=== PATIENT | female | born 1970 | race Caucasian/White ===

== ENCOUNTER 2016-12-20 15:01 | Emergency (ER) | payer OTHER ==
--- NOTE | 2016-12-20 15:29 | EDPHY ---
H & P Stated Complaint: PELVIC PAIN AND VAGINAL BLEEDING STARTED THIS MORNING 8AM Time Seen by Provider: 12/20/16 15:07 HPI/ROS: CHIEF COMPLAINT: Vaginal bleeding HISTORY OF PRESENT ILLNESS: This is a 46-year-old female SAB 1 with vaginal bleeding that began this morning, approximately 8 hours ago. She has been passing clots. The bleeding is heavier than her usual menstrual periods. She has used four super size pads since the bleeding began, without bleeding through a pad. She feels slightly lightheaded. She denies chest pain or shortness of breath. The bleeding is accompanied by low back pain and crampy lower abdominal pain, slightly worse on the left than on the right. She has not had a Pap smear for over 3 years. She has never had an abnormal Pap smear. She is perimenopausal. She had a time span of approximately 6 months during which she was amenorrheic. She then began [id number] supplements (which she is still taking but is unable to recall all of them) and has now had regular periods for the past 3 months. Her last normal menstrual period was 2 weeks ago. She has had a tubal ligation. She has had 2 sections, no other abdominal surgeries. She reports nausea but no vomiting. She has not had diarrhea. She denies dysuria. She has not been aware of fever. REVIEW OF SYSTEMS: A ten point review of systems was performed and is negative with the exception of the items mentioned in the HPI. Source: Patient, Family Exam Limitations: No limitations - Medical/Surgical History PMH: Past surgical history includes 1. section x2 2. Tubal ligation - Social History Smoking Status: Never smoked Additional Social History: She has 2 children, age 16 and 14. She is accompanied by her who is a local regional marketing manager. 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 - Physical Exam Exam: General Appearance: Alert. Vital signs reviewed. Blood pressure 168/96. Heart rate 59. Eyes: Pupils equal and round, no conjunctival injection, no discharge. Anicteric. Respiratory: Lungs are clear to auscultation; no wheezes, rales, or rhonchi. Cardiovascular: Regular rate and rhythm; no murmur, rub, or gallop. Gastrointestinal: Abdomen is soft and mildly tender in both lower quadrants, no guarding, bowel sounds normal. Pelvic: Bimanual exam shows uterus to be slightly enlarged, no cervical motion tenderness, no ovarian tenderness or enlargement appreciated. Blood and clots in the vaginal vault. Cervical os is closed with bleeding visible from the os. No masses or lesions noted. Skin: Warm and dry, no rashes on exposed skin, normal color. Back: Nontender to palpation over the thoracolumbar spine. No CVAT. Extremities: No lower extremity edema. Neurological: Alert and oriented. Moving all four extremities easily and equally. Psychiatric: Normal affect. Constitutional: Initial Vital Signs Temperature (C) 36.7 C 12/20/16 15:13 Heart Rate 59 L 12/20/16 15:13 Respiratory Rate 18 12/20/16 15:13 Blood Pressure 168/96 H 12/20/16 15:13 O2 Sat (%) 96 12/20/16 15:13 O2 Delivery Mode Room Air Allergies/Adverse Reactions: Sulfa (Sulfonamide Antibiotics) Allergy (Verified 09/20/14 14:12) Home Medications: Medication Instructions Recorded NK [No Known Home Meds] 09/20/14 Medical Decision Making ED Course/Re-evaluation: CBC shows hemoglobin 14.8, hematocrit 42.3. Serum test is negative. Ultrasound ordered. Ultrasound reported to me by Dr. Samuel. It shows endometrial thickening and a dominant right ovarian cyst, no free fluid. No fibroid. Bleeding continues in ED, perhaps slightly lessened. She received one liter NS IV. Pain medication offered, declined. Results of bloodwork and US reviewed with patient and her . I feel that she can safely return home with precautions. She is hemodynamically stable. She will follow up with her Drug Safety Scientist. I do not suspect coagulopathy. This bleeding does not seem consistent with her normal menses in terms of timing and volume. It is possible that the supplements she is taking has resulted in abnormal uterine bleeding; I don't know exactly what supplements she is on so cannot be certain. Her bleeding could be due to an ovulatory disorder or endometrial disorder. No polyp or fibroid seen on US. Malignancy remains in the differential. - Data Points Laboratory Results: Laboratory Results 12/20/16 15:38 Medications Given: Discontinued Medications Sodium Chloride (Ns) 1,000 mls @ 0 mls/hr IV EDNOW ONE; Wide Open PRN Reason: Protocol Stop: 12/20/16 15:58 Last Admin: 08/06/17 17:17 Dose: 1,000 mls Departure - Departure Disposition: Home, Routine, Self-Care Clinical Impression: Dysfunctional uterine bleeding Condition: Good Instructions: Dysfunctional Uterine Bleeding (ED) Additional Instructions: If you have persistent severe abdominal pain, if you have continued heavy bleeding (bleeding through a large pad in an hour and continuing to do so for more than four hours), if you become dizzy or lightheaded/feel short of breath/ experience chest pain--you should return to the emergency department. Please follow up with Dr. Cervantes. Referrals: Sultana Cervantes MD [Medical Doctor] - As per Instructions Ingrid Pretty MD [Medical Doctor] - As per Instructions
[2016-12-20 15:45] LABS: % IMMATURE GRANULYOCYTES 0.3 % (0.0-1.1); ABSOLUTE IMMATURE GRANULOCYTES 0.03 10^3/uL (0.00-0.10); ADD DIFF? NO; ADD MORPH? NO; ADD SCAN? NO; ATYPICAL LYMPHOCYTE FLAG 0 (0-99); FRAGMENT RBC FLAG 0 (0-99); HEMATOCRIT 42.3 % (38.0-47.0); HEMOGLOBIN 14.8 g/dL (12.6-16.3); LEFT SHIFT FLG 0 (0-99); LIPEMIA HEMOLYSIS FLAG 90 (0-99); MEAN CELL HEMOGLOBIN 29.5 pg (27.9-34.1); MEAN CELL VOLUME 84.3 fL (81.5-99.8); MEAN PLATELET VOLUME 9.8 fL (8.7-11.7); PLATELET CLUMPS FLAG 0 (0-99); PLATELET COUNT 262 10^3/uL (150-400); RED BLOOD CELL COUNT 5.02 10^6/uL (4.18-5.33); RED CELL DISTRIBUTION WIDTH 13.2 % (11.5-15.2)
[2016-12-20] MEDS ORDERED: NS 1,000 ML IV ONE (15:57)
[2016-12-20 18:16] VITALS: BP 130/86; PULSE 72; RESP 14; TEMP 98.4; O2SAT 94
== END 2016-12-20 18:15 | disposition home or self-care (01) ==
LOC: CED 15:01
DX: N93.8 Other specified abnormal uterine and vaginal bleeding (principal); E86.9 Volume depletion, unspecified; Z98.51 Tubal ligation status
CPT/HCPCS: 76856-PO; 84703-PO; 85025-PO

== ENCOUNTER 2017-02-20 11:55 | Emergency (ER) | payer OTHER ==
[2017-02-20 12:07] VITALS: TEMP 98
[2017-02-20] MEDS ORDERED: MECLIZINE HCL 25 MG TAB PO ONE (12:43)
--- NOTE | 2017-02-20 12:46 | EDPHY ---
H & P Time Seen by Provider: 02/20/17 12:12 HPI/ROS: Chief complaint. Upper respiratory infection, dizziness HPI. 46-year-old female presents with upper respiratory infection for 1 week. She has congestion and cough. Unsure whether she has had fever but she had chills earlier in the week. She now has dizziness with turning her head for the last 5 days. No change in her hearing or ear pain. Her is a family medicine physician in did the Tiffani maneuver with transient relief. She has had some cough but no shortness of breath. She had vomiting 5 days ago treated with Zofran and that is improved. Still has occasional slight nausea with the dizziness. Sick contacts at work and otherwise no foreign travel. No history of vertigo ROS Constitutional. no fever/chills, no weakness Eyes. no problems with vision ENT. Congestion Cardiovascular. no chest pain Respiratory. Slight cough but no shortness of breath Abdominal. no abdominal pain, no nausea/vomiting, no diarrhea . no problems urinating MS. no calf pain/swelling, no neck/back pain, no joint pain Skin. no rash Lymph. no swollen glands Neuro. Dizziness with head movement Past Medical/Surgical History: Thickened endometrium awaiting biopsy, tubal ligation, Social History: , nonsmoker, no alcohol Smoking Status: Never smoked Physical Exam: General Appearance: Alert well-developed female mild distress vital signs are stable Eyes: Pupils equal and round no pallor or injection. No obvious nystagmus ENT, right tympanic membrane is normal. Left tympanic membrane obscured by cerumen. Pharynx without injection Respiratory: There are no retractions, lungs are clear to auscultation. Cardiovascular: Regular rate and rhythm. Gastrointestinal: Abdomen is soft and nontender, no masses, bowel sounds normal. Neurological: Awake and alert, sensory and motor exams grossly normal. Skin: Warm and dry, no rashes. Musculoskeletal: Neck is supple nontender. Extremities symmetrical, full range of motion. Psychiatric: Patient is oriented X 3, there is no agitation. Constitutional: Initial Vital Signs Temperature (C) 36.6 C 02/20/17 12:04 Heart Rate 66 02/20/17 12:04 Respiratory Rate 18 02/20/17 12:04 Blood Pressure 148/97 H 02/20/17 12:04 O2 Sat (%) 97 02/20/17 12:04 O2 Delivery Mode Room Air Allergies/Adverse Reactions: Sulfa (Sulfonamide Antibiotics) Allergy (Verified 09/20/14 14:12) Home Medications: Medication Instructions Recorded Meclizine HCl 25 mg PO Q6-8PRN PRN #10 tablet 02/20/17 Medical Decision Making Procedures: Meclizine by mouth. Left ear irrigation with cerumen removal. Inspection of the left tympanic membrane following cerumen removal shows no further foreign body and the tympanic membrane is normal ED Course/Re-evaluation: Re-evaluation at 1:25 p.m.. Patient is stable. The patient, her and I discussed treatment plan including criteria for return importance of follow-up and further evaluation. They expressed understanding and agreement Differential Diagnosis: I think that this is peripheral vertigo secondary to upper respiratory infection congestion. No central findings suggestive of CVA. Normal neurologic exam. Her symptoms are worse with head movement. - Data Points Medications Given: Discontinued Medications Carbamide Peroxide (Debrox) 5 drop LEFTEAR EDNOW ONE Stop: 02/20/17 12:50 Last Admin: 02/20/17 12:52 Dose: 5 drops Meclizine HCl (Meclizine Hcl) 25 mg PO EDNOW ONE Stop: 02/20/17 12:44 Last Admin: 02/20/17 12:52 Dose: 25 mg Departure - Departure Disposition: Home, Routine, Self-Care Clinical Impression: Vertigo Condition: Good Instructions: Vertigo (ED) Additional Instructions: Meclizine using 1 pill every 8 hours as needed for dizziness. Zofran for nausea. Modified Tiffani maneuvers to help with dizziness. Return for worsening symptoms. Re-evaluation by Ear Nose Throat physician in 2 days if not improved Referrals: Sultana Cervantes MD [Primary Care Provider] - As per Instructions Luis Garces MD [Medical Doctor] - 2-3 days, if not improved Prescriptions: Meclizine HCl 25 mg PO Q6-8PRN PRN #10 tablet PRN Reason: Dizziness
[2017-02-20] MEDS ORDERED: CARBAMIDE PEROXIDE 15 ML BOTTLE LEFTEAR ONE (12:49)
[2017-02-20] MEDS ORDERED: DIAZEPAM 5 MG TAB PO ONE (13:57)
[2017-02-20] MEDS ORDERED: DIAZEPAM 5 MG PREPACK#4 BTL TAKEHOME ONE (14:32)
[2017-02-20 14:52] VITALS: BP 132/62; PULSE 75; RESP 18; O2SAT 99
== END 2017-02-20 14:50 | disposition home or self-care (01) ==
LOC: CED 11:55
DX: R42 Dizziness and giddiness (principal)